=== PATIENT | female | born 2000 | race Caucasian/White ===

== ENCOUNTER 2020-06-04 03:25 | Inpatient (IN) | payer OTHER, MEDICAID ==
[~2020-06-04] VITALS: Ht 157.5 cm; Wt 72.6 kg
[2020-06-04] MEDS ORDERED: TERBUTALINE SULFATE 1 MG/ML VIAL SUBCUT ONE (05:15)
[2020-06-04] MEDS ORDERED: NALBUPHINE HCL 10 MG/ML AMP IVP PRN (05:15)
[2020-06-04] MEDS ORDERED: LR 1,000 ML IV ONE (05:15)
[2020-06-04] MEDS ORDERED: OXYTOCIN/0.9 % SODIUM CHLORIDE 1,000 ML IV SCH ×2 (05:15→15:45)
[2020-06-04] MEDS ORDERED: LR 1,000 ML IV SCH (05:15)
[2020-06-04] MEDS ORDERED: AMPICILLIN SODIUM 2 GM VIAL ONE (05:23)
[2020-06-04] MEDS ORDERED: AMPICILLIN SODIUM 2 GM in NS 100 ML IV ONE (05:30)
[2020-06-04] MEDS ORDERED: FLU VACC QS2020-21 (6 mos & up) 0.5 ML/SYRINGE I.M. PRN (05:30)
[2020-06-04] MEDS ORDERED: NALBUPHINE HCL 10 MG/ML AMP ONE ×2 (05:54→08:02)
[2020-06-04 06:20] LABS: BASOPHILS % (AUTO) 0.4 % (0.0-2.0); EOSINOPHILS # (AUTO) 0.1 K/uL (0.0-0.4); EOSINOPHILS % (AUTO) 0.5 % (0.0-4.0); HEMATOCRIT 35.7 % (36-48); HEMOGLOBIN 12.2 g/dL (12.0-16.0); LYMPHOCYTES # (AUTO) 2.4 K/uL (1.0-5.5); LYMPHOCYTES % (AUTO) 23.4 % (20.5-51.5); MEAN CORPUSCULAR HEMOGLOBIN 30 pg (27-31); MEAN CORPUSCULAR HGB CONC 34 % (32-36); MEAN CORPUSCULAR VOLUME 86 fL (79.0-98.0); MONOCYTES # (AUTO) 0.9 K/uL (0.0-1.0); NEUTROPHILS % (AUTO) 66.7 % (40.0-70.0); PLATELET COUNT (AUTO) 136 K/uL (130-430); RED BLOOD CELL COUNT(AUTO) 4.13 MIL/uL (4.2-6.2); RED CELL DISTRIBUTION WIDTH 14.1 % (9.0-15.0); WHITE BLOOD COUNT (AUTO) 10.4 K/uL (4.8-10.8)
[2020-06-04 08:18] LABS: ALBUMIN 2.8 g/dL (3.4-4.8); CALCIUM 8.7 mg/dL (8.4-11.0); CREATININE 0.69 mg/dL (0.55-1.30); TOTAL BILIRUBIN 0.3 mg/dL (0.0-1.0)
[2020-06-04 08:19] LABS: URIC ACID 5.6 mg/dL (2.4-7.0)
[2020-06-04] MEDS ORDERED: fentaNYL CITRATE/PF 100 MCG/2 ML AMP ONE (09:11)
[2020-06-04] MEDS ORDERED: ROPIVACAINE HCL/PF 0.2% 200 ML ONE (09:12)
[2020-06-04] MEDS ORDERED: AMPICILLIN SODIUM 1 GM VIAL ONE ×2 (09:27→13:12)
[2020-06-04] MEDS: AMPICILLIN SODIUM 1 GM in NS 50 ML IV SCH ×2 (09:30→13:35)
[2020-06-04] MEDS ORDERED: LR 500 ML IV ONE (10:15)
[2020-06-04] MEDS ORDERED: FENT2mCg/mL-ROPIVA0.2%/NS EPID 200 ML EP SCH (10:15)
[2020-06-04] MEDS ORDERED: WITCH HAZEL LEAF 1 MED.PAD MED.PAD TP PRN (15:45)
[2020-06-04] MEDS ORDERED: OXYTOCIN/0.9 % SODIUM CHLORIDE 1,000 ML IV ONE (15:45)
[2020-06-04] MEDS ORDERED: OXYCODONE/ACETAMINOPHEN 5-325 TABLET PO PRN (15:45)
[2020-06-04] MEDS ORDERED: SENNOSIDES/DOCUSATE SODIUM 1 TAB TABLET(SENOKOT-S) PO PRN (15:45)
[2020-06-04] MEDS ORDERED: DIPH-TET-PERTUS Vaccine 0.5 ML VIAL (ADACEL) I.M. PRN (15:45)
[2020-06-04] MEDS ORDERED: HYDROcodone/ACETAMIN 5-325 MG TAB (NORCO/ VICODIN) PO PRN (15:45)
[2020-06-04] MEDS ORDERED: DERMOPLAST SPRAY TP PRN (15:45)
[2020-06-04] MEDS ORDERED: LANOLIN 7 GM OINT. TP PRN (15:45)
[2020-06-04] MEDS ORDERED: METHYLERGONOVINE MALEATE 0.2 MG TABLET PO PRN (15:45)
[2020-06-04] MEDS ORDERED: RHO(D) IMMUNE GLOBULIN/MALTOSE 1500 UNITS/1.3 ML (WINHRO) IM PRN (15:45)
[2020-06-04] MEDS ORDERED: HYDROCORTISONE 0.5% CREAM 28.4 GM CREAM.GM. TP PRN (15:45)
[2020-06-04] MEDS ORDERED: ANUSOL 1 EA SUPP.RECT (PREPARATION H) RC PRN (15:45)
[2020-06-04] MEDS ORDERED: MEASLES,MUMPS&RUBELLA VACC/PF 12500 UNIT/0.5 ML VIAL SUBQ PRN (15:45)
[2020-06-04] MEDS ORDERED: FIORCET PO PRN (15:51)
[2020-06-04] MEDS ORDERED: ONDANSETRON HCL 4 MG/2 ML VIAL IVP PRN (15:56)
[2020-06-04] MEDS ORDERED: ONDANSETRON HCL 4 MG/2 ML VIAL ONE (16:00)
[2020-06-04] MEDS: OXYCODONE/ACETAMINOPHEN 5-325 TABLET PO PRN (16:02)
[2020-06-04] MEDS: IBUPROFEN 600 MG TABLET PO SCH (18:16)
[2020-06-04] MEDS ORDERED: TEMAZEPAM 15 MG CAPSULE PO PRN (21:00)
[2020-06-05] MEDS: IBUPROFEN 600 MG TABLET PO SCH ×4 (00:37→17:44)
[2020-06-05] MEDS: DOCUSATE SODIUM 100 MG CAPSULE PO PRN ×2 (00:38→09:15)
[2020-06-05] MEDS: OXYCODONE/ACETAMINOPHEN 5-325 TABLET PO PRN ×4 (05:23→17:44)
[2020-06-05 06:34] LABS: BASOPHILS # (AUTO) 0.1 K/uL (0.0-0.2); BASOPHILS % (AUTO) 0.9 % (0.0-2.0); EOSINOPHILS % (AUTO) 0.5 % (0.0-4.0); HEMATOCRIT 28.8 % (36-48); HEMOGLOBIN 10.1 g/dL (12.0-16.0); LYMPHOCYTES # (AUTO) 1.7 K/uL (1.0-5.5); LYMPHOCYTES % (AUTO) 18.8 % (20.5-51.5); MEAN CORPUSCULAR HEMOGLOBIN 30 pg (27-31); MEAN CORPUSCULAR HGB CONC 35 % (32-36); MEAN CORPUSCULAR VOLUME 86 fL (79.0-98.0); MONOCYTES # (AUTO) 0.7 K/uL (0.0-1.0); MONOCYTES % (AUTO) 7.7 % (1.7-9.3); NEUTROPHILS # (AUTO) 6.4 K/uL (1.8-7.7); NEUTROPHILS % (AUTO) 72.1 % (40.0-70.0); PLATELET COUNT (AUTO) 116 K/uL (130-430); RED BLOOD CELL COUNT(AUTO) 3.34 MIL/uL (4.2-6.2); RED CELL DISTRIBUTION WIDTH 13.9 % (9.0-15.0); WHITE BLOOD COUNT (AUTO) 8.9 K/uL (4.8-10.8)
[2020-06-06 19:06] LABS: FTA-Ab (T PALLIDUM) Non Reactive (Non Reactive)
== END 2020-06-05 17:55 | disposition home or self-care (01) | DRG 807 ==
LOC: SPU 03:25 → OBSVTOIN 05:07
PROVIDERS: ADMIT Specialist; ATTEND Specialist
PROC: 10E0XZZ Delivery of Products of Conception, External Approach (ICD-10-PCS; principal; 2020-06-04)
PROC: 0HQ9XZZ Repair Perineum Skin, External Approach (ICD-10-PCS; 2020-06-04)
PROC: 3E0R3BZ Introduction of Anesthetic Agent into Spinal Canal, Percutaneous Approach (ICD-10-PCS; 2020-06-04)
PROC: 00HU33Z Insertion of Infusion Device into Spinal Canal, Percutaneous Approach (ICD-10-PCS; 2020-06-04)
DX: O70.0 First degree perineal laceration during delivery (principal); Z37.0 Single live birth; Z20.822 Contact with and (suspected) exposure to COVID-19; Z3A.39 39 weeks gestation of pregnancy
CPT/HCPCS: 36415; 80053; 81002-TC; 84550-TC; 85025; 85384-TC; 86592; 86780; 86886; 86900; 86901; G0378; J0290; J2300; J2405; J2590; J3010

== ENCOUNTER 2022-04-04 09:26 | Inpatient (IN) | payer MEDICAID, OTHER ==
[~2022-04-04] VITALS: Ht 157.5 cm; Wt 55.8 kg
[2022-04-04] MEDS ORDERED: OXYTOCIN/0.9 % SODIUM CHLORIDE 1,000 ML IV SCH (09:45)
[2022-04-04] MEDS ORDERED: AMPICILLIN SODIUM 2 GM in NS 100 ML IV ONE (09:45)
[2022-04-04] MEDS ORDERED: LR 1,000 ML IV SCH (09:45)
[2022-04-04] MEDS ORDERED: AMPICILLIN SODIUM 2 GM VIAL ONE (10:04)
[2022-04-04 10:36] LABS: BASOPHILS % (AUTO) 0.5 % (0.0-2.0); EOSINOPHILS % (AUTO) 0.3 % (0.0-4.0); HEMATOCRIT 34.6 % (36-48); HEMOGLOBIN 11.9 g/dL (12.0-16.0); LYMPHOCYTES # (AUTO) 1.7 K/uL (1.0-5.5); LYMPHOCYTES % (AUTO) 23.5 % (20.5-51.5); MEAN CORPUSCULAR HEMOGLOBIN 29 pg (27-31); MEAN CORPUSCULAR HGB CONC 35 % (32-36); MEAN CORPUSCULAR VOLUME 83 fL (79.0-98.0); MONOCYTES # (AUTO) 0.6 K/uL (0.0-1.0); MONOCYTES % (AUTO) 8.8 % (1.7-9.3); NEUTROPHILS # (AUTO) 4.9 K/uL (1.8-7.7); NEUTROPHILS % (AUTO) 66.9 % (40.0-70.0); PLATELET COUNT (AUTO) 168 K/uL (130-430); RED BLOOD CELL COUNT(AUTO) 4.18 MIL/uL (4.2-6.2); RED CELL DISTRIBUTION WIDTH 13.1 % (9.0-15.0); WHITE BLOOD COUNT (AUTO) 7.3 K/uL (4.8-10.8)
[2022-04-04 10:38] LABS: BILIRUBIN,URINE NEGATIVE (NEGATIVE); BLOOD, URINE NEGATIVE (NEGATIVE); CLARITY/URINE SL CLOUDY (CLEAR); COLOR,URINE YELLOW (YELLOW); GLUCOSE,URINE NEGATIVE (NEGATIVE); KETONES,URINE NEGATIVE (NEGATIVE); LEUKOCYTE ESTERASE ,URINE 3+ (NEGATIVE); NITRITE, URINE NEGATIVE (NEGATIVE); PH,URINE 6.5 (5.0-8.0); PROTEIN URINE NEGATIVE (NEGATIVE); UROBILINOGEN,URINE 0.2 (0.2-1.0)
[2022-04-04 10:51] LABS: BARBITURATE, URINE NEGATIVE (NEG <=200); BENZODIAZEPINE, URINE NEGATIVE (NEG <=150); CANNABINOID, URINE POSITIVE (NEG <=50); COCAINE, URINE NEGATIVE (NEG <=150); METHAMPHETAMINES SCREEN,URINE NEGATIVE (NEG <=500); OPIATE, URINE NEGATIVE (NEG <=100); PHENCYCLIDINE SCREEN,URINE NEGATIVE (NEG <=25); UR TRICYCLIC ANTIDEPRESSANTS NEGATIVE (NEG <=300); URINE AMPHETAMINE NEGATIVE (NEG <=500); URINE METHADONE NEGATIVE (NEG <=200); URINE OXYCODONE SCREEN NEGATIVE (NEG <=100); URINE PROPOXYPHENE SCREEN NEGATIVE (NEG <=300)
[2022-04-04 10:52] LABS: BACTERIA,URINE FEW /HPF (None Seen); MUCUS,URINE None Seen /LPF (None Seen); RBC,URINE 0-3 /HPF (0-3)
[2022-04-04] MEDS ORDERED: MORPHINE 2 MG/ML INJ. SYRINGE IVP ONE (12:00)
[2022-04-04] MEDS ORDERED: LANOLIN 7 GM OINT. TP PRN (12:00)
[2022-04-04] MEDS ORDERED: WITCH HAZEL LEAF 1 MED.PAD MED.PAD TP PRN (12:00)
[2022-04-04] MEDS ORDERED: METHYLERGONOVINE MALEATE 0.2 MG TABLET PO PRN (12:00)
[2022-04-04] MEDS ORDERED: OXYTOCIN/0.9 % SODIUM CHLORIDE 1,000 ML IV ONE (12:00)
[2022-04-04] MEDS ORDERED: DERMOPLAST SPRAY TP PRN (12:00)
[2022-04-04] MEDS ORDERED: AMPICILLIN SODIUM 1 GM in NS 50 ML IV SCH (13:00)
[2022-04-04 17:53] VITALS: BP_SYST 114
[2022-04-04] MEDS: IBUPROFEN 600 MG TABLET PO SCH ×2 (18:03→23:17)
[2022-04-04] MEDS ORDERED: OXYCODONE/ACETAMINOPHEN 5-325 TABLET PO PRN (21:30)
[2022-04-05 06:06] LABS: RUBELLA AB, IgG 3.86 index (Immune >0.99)
[2022-04-05] MEDS: IBUPROFEN 600 MG TABLET PO SCH ×2 (06:33→11:57)
[2022-04-05 07:07] LABS: HEPATITIS B SURFACE AG Negative (Negative)
[2022-04-05] MEDS ORDERED: DOCUSATE SODIUM 100 MG CAPSULE PO SCH (09:00)
[2022-04-05] MEDS: OXYCODONE/ACETAMINOPHEN 5-325 TABLET PO PRN ×2 (09:07→13:46)
== END 2022-04-05 14:10 | disposition home or self-care (01) | DRG 560 ==
LOC: SPU 09:26 → OBSVTOIN 09:26 → SPU 20:30
PROVIDERS: ADMIT Obstetrics & Gynecology; ATTEND Obstetrics & Gynecology
PROC: 10E0XZZ Delivery of Products of Conception, External Approach (ICD-10-PCS; principal; 2022-04-05)
DX: O80 Encounter for full-term uncomplicated delivery (principal); Z37.0 Single live birth; Z20.822 Contact with and (suspected) exposure to COVID-19; Z3A.39 39 weeks gestation of pregnancy
CPT/HCPCS: 36415; 80307; 81000; 81002; 85025; 86592; 86762; 86886; 86900; 86901; 87340; 87536; J0290; J2270; J2590